=== PATIENT | male | born 1960 | race Caucasian/White ===

== ENCOUNTER 2020-09-16 10:14 | Outpatient (CLI) | payer OTHER ==
--- NOTE | 2020-09-16 11:38 | MRI ---
MRI Lumbar Spine WO Con History: Lumbar radiculopathy Comparison: None. Findings: Aortic contour is nonaneurysmal. No hydronephrosis. No retroperitoneal periaortic adenopath y. Mild lumbar dextroscoliosis. 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 Conus medullaris terminates near the superior L1 endplate. Levels are as follows: L1/L2: Mild disc desiccation height loss. Moderate circumferential disc osteophyte complex with super imposed central and right paracentral disc herniation. Modic type I endplate change. Mild ventral CSF space effacement with the spinal canal measuring 9 mm. No significant neural foraminal narrowing. L2/L3: Mild disc desiccation and height loss. Moderate circumferential disc osteophyte complex. Mild right neural foraminal narrowing. L3/L4: Minimal disc desiccation and height loss. Mild to moderate hypertrophic facet arthrosis. Small circumferential disc osteophyte complex. 1 mm anterolisthesis. Left subforaminal annular fissure. Mild bilateral neural foraminal narrowing. L4/L5: Advanced degenerative disc space height loss with 2 mm retrolisthesis. Large disc osteophyte c omplex. Moderate bilateral neural foraminal narrowing with abutment of the right traversing L5 nerve root. No significant spinal canal narrowing. L5/S1: Small rudimentary disc. No neural foraminal or spinal canal narrowing. Impression: 1. 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 2. Multilevel moderate as described with Modic type I endplate changes at L4/L5. No high-grade neural foraminal or spinal canal narrowing.
--- NOTE | 2020-09-16 12:10 | MRI ---
MRI Cervical spine without contrast: HISTORY: Neck pain with radiculopathy. COMPARISON: None FINDINGS: The craniocervical junction is unremarkable. No significant cord signal abnormality. There is increased T1 and T2-weighted signal intensity seen involving the left-sided facets and later al masses of the C3 and C4 vertebral bodies. This is thought to be related to facet hypertrophic changes and degenerative changes with adjacent reactive changes secondary to to the degenerative stiles ges and/or prior facet injection in the correct clinical scenario. There is no signal abnormality seen on the fluid sensitive sequence to suggest findings are related to infectious process. C1-2:No significant stenosis. C2-3: There is small focal central disc protrusion. There is no significant central canal or neural f oraminal narrowing. C3-4: No disc bulge or disc herniation. There is mild bilateral neural foraminal narrowing due to fac et hypertrophic changes greater on the left. Central spinal canal is patent C4-5: Small central disc protrusion which effaces the central aspect of the ventral subarachnoid spac e. Right neural foramen is patent, but there is moderate left-sided neural foraminal narrowing due to facet hypertrophic changes. C5-6: Loss of intervertebral disc height. Disc osteophyte complex is present. There is uncinate proce ss hypertrophy primarily on the right. There is moderate to severe right-sided neural foraminal narrowing. Left neural foramen is patent. There is effacement of ventral subarachnoid space with slig ht flattening the anterior aspect of the spinal cord. C6-7: Disc osteophyte complex is present with associated endplate degenerative changes. There is effa cement of the ventral subarachnoid space. Mild/moderate left and moderate right-sided neural foraminal narrowing is present. C7-T1: Loss of intervertebral disc height with mild disc osteophyte complex and endplate degenerative changes. There is slight effacement of ventral subarachnoid space without significant central canal narrowing. There is increased T2-weighted signal intensity seen in the right facets with hypert rophic changes at this level with fluid signal intensity seen in the right facet joint. There is severe narrowing of the right neural foramen. The left neural foramen is patent. IMPRESSION: 1. Increased signal intensity in the lateral masses and left facets at the C3-4 level which are thoug ht to be related to hypertrophic changes and degenerative changes with adjacent increased signal likely related to reactive inflammatory changes and/or prior facet joint injection. There is no fluid signal intensity seen on fluid sensitive sequence to suggest that this is related to infection. 2. Multilevel degenerative changes throughout the cervical spine as described above with multilevel n eural foraminal narrowing.
== END 2020-09-16 10:15 | disposition home or self-care (01) ==
LOC: TBSIIMAG 10:14
DX: M50.022 Cervical disc disorder at C5-C6 level with myelopathy (principal); M47.16 Other spondylosis with myelopathy, lumbar region; M47.12 Other spondylosis with myelopathy, cervical region; M48.02 Spinal stenosis, cervical region; R93.89 Abnormal findings on diagnostic imaging of other specified body structures; M48.061 Spinal stenosis, lumbar region without neurogenic claudication
CPT/HCPCS: 72141; 72148